=== PATIENT | male | born 1940 | race Caucasian/White ===

== ENCOUNTER 2017-10-07 08:55 | Inpatient (IN) | payer MEDICARE, BC ==
[~2017-10-07] VITALS: Ht 182.9 cm; Wt 135.6 kg
[2017-10-07] MEDS ORDERED: SODIUM CHLORIDE FLUSH 10ML SYR IVF ONE (09:30)
[2017-10-07] MEDS ORDERED: ASPI-515 PO (09:32)
[2017-10-07] MEDS ORDERED: CHOL2000 PO (09:33)
[2017-10-07] MEDS ORDERED: LOVA40TA2 PO (09:33)
[2017-10-07 09:42] LABS: BASOPHILS # (AUTO) 0.05 x10^3/uL (0-0.1); BASOPHILS % (AUTO) 1 % (0-1); EOSINOPHILS # (AUTO) 0.16 x10^3/uL (0-0.4); EOSINOPHILS % (AUTO) 3 % (1-7); LYMPHOCYTES # (AUTO) 1.07 x10^3/uL (1-3.4); LYMPHOCYTES % (AUTO) 18 % (22-44); MD NO; MEAN CORPUSCULAR HEMOGLOBIN 30.2 pg (27.5-34.5); MEAN CORPUSCULAR VOLUME 88.7 fL (81-97); MEAN PLATELET VOLUME 9.3 fL (7.4-10.4); MONOCYTES # (AUTO) 0.56 x10^3/uL (0.2-0.8); MONOCYTES % (AUTO) 9 % (2-9); NEUTROPHILS # (AUTO) 4.25 x10^3/uL (1.8-6.8); NEUTROPHILS % (AUTO) 70 % (42-75); PLATELET COUNT 205 x10^3/uL (130-400); RED BLOOD COUNT 4.26 x10^6/uL (4.38-5.82); RED CELL DISTRIBUTION WIDTH 14.8 % (9.4-14.8)
[2017-10-07 09:52] LABS: INTERNATIONAL NORMALIZED RATIO 1.02 (0.93-1.1); PROTHROMBIN TIME 10.6 Seconds (9.6-11.5)
[2017-10-07 09:53] LABS: ALANINE AMINOTRANSFERASE 38 U/L (12-78); ALBUMIN 3.5 g/dL (3.4-5.0); ANION GAP 7 mmol/L (5-15); CALCIUM 8.2 mg/dL (8.5-10.1); CHLORIDE 111 mmol/L (98-107); CREATININE 1.07 mg/dL (0.7-1.3)
[2017-10-07 09:58] LABS: ALKALINE PHOSPHATASE 77 U/L (45-117); BILIRUBIN,TOTAL 0.7 mg/dL (0.2-1.0); T4 (THYROXINE) 10.8 mcg/dL (4.5-12.1); TOTAL PROTEIN 6.9 g/dL (6.4-8.2); TROPONIN I < 0.015 ng/mL (0.000-0.045)
[2017-10-07] MEDS ORDERED: SODIUM CHLORIDE 0.9% 1,000 ML IV ONE (10:42)
[2017-10-07] MEDS ORDERED: ONDANSETRON 2MG/ML, 2ML IV PRN (11:00)
[2017-10-07] MEDS ORDERED: CEFAZOLIN PMX 1GM/50ML 50 ML IVPB ONE ×2 (11:00→12:30)
[2017-10-07] MEDS ORDERED: BISACODYL 5 MG EC TABLET PO PRN (11:00)
[2017-10-07] MEDS ORDERED: ZOLPIDEM 5MG TABLET PO PRN (11:00)
[2017-10-07] MEDS ORDERED: SODIUM CHLORIDE FLUSH 10ML SYR IVF PRN (11:00)
[2017-10-07] MEDS ORDERED: ACETAMINOPHEN 650 MG/20.3 ML UDC PO PRN (11:00)
[2017-10-07] MEDS ORDERED: CEFAZOLIN PMX 1GM/50ML 50 ML ONE ×3 (11:02→16:08)
[2017-10-07 12:03] VITALS: BP 206/74
[2017-10-07] MEDS: SODIUM CHLORIDE 0.9% 1,000 ML IV SCH ×2 (12:59→18:35)
[2017-10-07] MEDS ORDERED: LIDOCAINE 2%, 50ML ONE (15:56)
[2017-10-07] MEDS ORDERED: FENTANYL PF 100 MCG/2ML ONE (15:56)
[2017-10-07] MEDS ORDERED: CEFAZOLIN 1,000 MG ONE (15:56)
[2017-10-07] MEDS ORDERED: MIDAZOLAM 1 MG/ML, 5ML ONE (15:56)
[2017-10-07] MEDS ORDERED: HYDROcodone/APAP 5/325 TABLET PO PRN (17:30)
[2017-10-07] MEDS ORDERED: HOLD MEDICATION MC PRN (17:30)
[2017-10-07] MEDS ORDERED: LABETALOL 5MG/ML, 20ML IVPush PRN (18:00)
[2017-10-07] MEDS ORDERED: hydrALAzine 20 MG/ML, 1ML IV PRN (18:00)
[2017-10-07] MEDS ORDERED: LOSARTAN 25MG TABLET ONE (18:05)
[2017-10-07] MEDS: LOSARTAN 25MG TABLET PO SCH (18:08)
[2017-10-07 19:00] VITALS: BP 172/80
[2017-10-07 19:15] VITALS: BP 148/83
[2017-10-07] MEDS: SODIUM CHLORIDE FLUSH 10ML SYR IVF SCH ×2 (20:11)
[2017-10-07] MEDS ORDERED: LOVASTATIN 40 MG TABLET PO SCH (21:00)
[2017-10-07] MEDS: CEFAZOLIN PMX 1GM/50ML 50 ML IVPB SCH (23:21)
[2017-10-08 01:42] VITALS: BP 162/89
[2017-10-08 02:30] VITALS: BP 144/81
[2017-10-08] MEDS: SODIUM CHLORIDE 0.9% 1,000 ML IV SCH ×2 (02:35→08:26)
[2017-10-08 05:52] LABS: BASOPHILS # (AUTO) 0.03 x10^3/uL (0-0.1); BASOPHILS % (AUTO) 1 % (0-1); EOSINOPHILS # (AUTO) 0.15 x10^3/uL (0-0.4); EOSINOPHILS % (AUTO) 2 % (1-7); LYMPHOCYTES # (AUTO) 1.01 x10^3/uL (1-3.4); LYMPHOCYTES % (AUTO) 15 % (22-44); MD NO; MEAN CORPUSCULAR HEMOGLOBIN 30.6 pg (27.5-34.5); MEAN CORPUSCULAR HGB CONC 34.2 g/dL (33.2-36.2); MEAN CORPUSCULAR VOLUME 89.6 fL (81-97); MEAN PLATELET VOLUME 9.7 fL (7.4-10.4); MONOCYTES # (AUTO) 0.52 x10^3/uL (0.2-0.8); MONOCYTES % (AUTO) 8 % (2-9); NEUTROPHILS # (AUTO) 4.91 x10^3/uL (1.8-6.8); NEUTROPHILS % (AUTO) 74 % (42-75); PLATELET COUNT 202 x10^3/uL (130-400); RED BLOOD COUNT 4.36 x10^6/uL (4.38-5.82); RED CELL DISTRIBUTION WIDTH 14.9 % (9.4-14.8)
[2017-10-08] MEDS ORDERED: ASPIRIN 81 MG TABLET EC PO SCH (06:00)
[2017-10-08 06:06] LABS: CHOL/HDL RATIO 1.6; LDL/HDL RATIO 0.4 (0.5-3.0)
[2017-10-08 08:20] VITALS: BP 164/90
[2017-10-08] MEDS: LOSARTAN 25MG TABLET PO SCH (08:26)
[2017-10-08] MEDS: CEFAZOLIN PMX 1GM/50ML 50 ML IVPB SCH (08:26)
[2017-10-08] MEDS: SODIUM CHLORIDE FLUSH 10ML SYR IVF SCH ×2 (08:26)
[2017-10-08] MEDS ORDERED: LOSA25TA2 PO (08:29)
== END 2017-10-08 10:14 | disposition home or self-care (01) | DRG 243 ==
LOC: ED 10:08 → EDIP 10:35 → 5SO 11:57 → DCLOUNGE 10-08 09:53
PROVIDERS: ADMIT Internal Medicine Cardiovascular Disease; ATTEND Internal Medicine Cardiovascular Disease
PROC: 0JH606Z Insertion of Pacemaker, Dual Chamber into Chest Subcutaneous Tissue and Fascia, Open Approach (ICD-10-PCS; principal; 2017-10-07)
PROC: 02H63JZ Insertion of Pacemaker Lead into Right Atrium, Percutaneous Approach (ICD-10-PCS; 2017-10-07)
PROC: 02HK3JZ Insertion of Pacemaker Lead into Right Ventricle, Percutaneous Approach (ICD-10-PCS; 2017-10-07)
DX: I44.2 Atrioventricular block, complete (principal); Z68.41 Body mass index [BMI] 40.0-44.9, adult; I50.32 Chronic diastolic (congestive) heart failure; E66.9 Obesity, unspecified; Z96.659 Presence of unspecified artificial knee joint; I45.10 Unspecified right bundle-branch block; I10 Essential (primary) hypertension; E78.5 Hyperlipidemia, unspecified; I27.20 Pulmonary hypertension, unspecified; Z87.891 Personal history of nicotine dependence; Z79.82 Long term (current) use of aspirin; Z79.899 Other long term (current) drug therapy; Z72.89 Other problems related to lifestyle; I11.0 Hypertensive heart disease with heart failure
CPT/HCPCS: 33208; 36415; 71045; 80053; 80061; 83735; 83880; 84436; 84443; 84484; 85025; 85610; 85730; 93005; 93306; 96365; 99156; 99157; 99285; C1779; C1785; C1892; G0378; J0690; J2250; J3010; J0360

== ENCOUNTER 2020-10-08 16:57 | Emergency (ER) | payer BC ==
[~2020-10-08] VITALS: Ht 185.4 cm; Wt 131.0 kg
[~2020-10-08 16:57] MED LIST: ASPI-963 PO; CHOL2000 PO; LOSA25TA2 PO; LOVA40TA2 PO
[2020-10-08 17:57] LABS: BASOPHILS % (AUTO) 1 % (0-1); EOSINOPHILS % (AUTO) 3 % (1-7); LYMPHOCYTES % (AUTO) 20 % (22-44); MEAN CORPUSCULAR HEMOGLOBIN 30.1 pg (27.5-34.5); MEAN CORPUSCULAR HGB CONC 33.2 g/dL (33.2-36.2); MEAN PLATELET VOLUME 8.6 fL (7.4-10.4); MONOCYTES % (AUTO) 12 % (2-9); NEUTROPHILS % (AUTO) 65 % (42-75); PLATELET COUNT 256 x10^3/uL (130-400); RED BLOOD COUNT 4.12 x10^6/uL (4.38-5.82); RED CELL DISTRIBUTION WIDTH 14.7 % (9.4-14.8)
[2020-10-08 18:06] LABS: ALANINE AMINOTRANSFERASE 26 U/L (12-78); ALBUMIN 3.4 g/dL (3.4-5.0); ANION GAP 5 mmol/L (5-15); CHLORIDE 109 mmol/L (98-107)
[2020-10-08 18:08] LABS: ALKALINE PHOSPHATASE 85 U/L (45-117); BILIRUBIN,TOTAL 0.6 mg/dL (0.2-1.0); TOTAL PROTEIN 7.2 g/dL (6.4-8.2)
--- NOTE | 2020-10-08 20:51 | NUR ---
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
--- NOTE | 2020-10-08 21:18 | NUR ---
PT REPORTS RIGHT LEG SWELLING/REDNESS SINCE A GLF X1 WEEK. VS STABLE. CALL LIGHT IN PLACE. WILL CONTINUE TO MONITOR.
[2020-10-08 22:01] VITALS: BP 129/51
== END 2020-10-08 22:03 | disposition home or self-care (01) ==
LOC: ED 17:00
DX: S83.411A Sprain of medial collateral ligament of right knee, initial encounter (principal); L03.115 Cellulitis of right lower limb; I10 Essential (primary) hypertension; Z87.891 Personal history of nicotine dependence; W18.30XA Fall on same level, unspecified, initial encounter; Y93.89 Activity, other specified; Y92.89 Other specified places as the place of occurrence of the external cause; Y99.8 Other external cause status
CPT/HCPCS: 36415; 80053; 85025; 99285